=== PATIENT | male | born 1990 | race Caucasian/White ===

== ENCOUNTER 2016-11-10 01:30 | Emergency (ER) | payer SELFPAY ==
--- NOTE | 2016-11-10 01:35 | NUR ---
CALLED PT NAME IN WR. NO RESPONSE AT THIS TIME.
--- NOTE | 2016-11-10 02:09 | NUR ---
CALLED PT NAME X3. NO RESPONSE PT LEFT PER ADMITTING.
== END 2016-11-10 02:12 | disposition left against medical advice (07) ==
LOC: ER 01:34
DX: Z53.21 Procedure and treatment not carried out due to patient leaving prior to being seen by health care provider (principal)